=== PATIENT | female | born 1985 | race Two or more races ===

== ENCOUNTER 2024-04-10 18:02 | Emergency (ER) | payer OTHER ==
[~2024-04-10] VITALS: Ht 157.5 cm; Wt 84.1 kg
[2024-04-10] MEDS ORDERED: IBUP-45 PO (18:19)
[2024-04-10] MEDS: KETOROLAC TROMETHAMINE 60 MG/2 ML VIAL IM ONE (20:05)
[2024-04-10] MEDS ORDERED: CELE100 PO (20:21)
[2024-04-10 21:38] VITALS: BP 119/63; PULSE 69; RESP 18; TEMP 97.5
== END 2024-04-10 22:20 | disposition home or self-care (01) ==
LOC: EMS 18:02
DX: G56.01 Carpal tunnel syndrome, right upper limb (principal); J45.909 Unspecified asthma, uncomplicated; F12.90 Cannabis use, unspecified, uncomplicated; Z98.890 Other specified postprocedural states; Z88.1 Allergy status to other antibiotic agents; Z88.8 Allergy status to other drugs, medicaments and biological substances
CPT/HCPCS: 99283; 96372; J1885